=== PATIENT | female | born 1995 | race Caucasian/White ===

== ENCOUNTER → 2017-09-23 | Outpatient (CLI) | payer OTHER ==
--- NOTE | 2017-09-23 13:49 | DIAGNOSTIC IMAGING REPORT ---
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 FINDINGS: There is no evidence of hydrocephalus. No orbital lesions are visualized. The mastoid air cells are symmetrically aerated. The middle ear cavities are well aerated. There is a small amount of inflammatory debris within the right maxillary sinus. There is mild mucosal disease within right-sided ethmoid air cells. The frontal sinuses are clear. The ossicular units are patent bilaterally. The ethmoid notches are protected bilaterally. The right olfactory groove measures 6.1 mm. The left olfactory groove measures 4.5 mm in depth. The frontal and sphenoid recesses appear patent IMPRESSION: 1. Mild mucosal disease within the right maxillary and ethmoid sinuses 2. The ostiomeatal units are patent bilaterally. Electronically signed by: Delgado Gamboa M.D. 09/23/2017 1:48 PM Dictated Date/Time: 09/23/2017 1:44 PM
== END | disposition home or self-care (01) ==
LOC: C.CTS 13:30
DX: J32.9 Chronic sinusitis, unspecified (principal); J34.3 Hypertrophy of nasal turbinates